=== PATIENT | male | born 1965 | race Caucasian/White ===

== ENCOUNTER → 2023-01-13 14:11 | Outpatient (CLI) | payer OTHER, SELFPAY ==
[2023-01-13 20:38] LABS: Alanine Aminotransferase 37 IU/L (<50); Albumin Globulin Ratio 1.5 (1.0-2.8); Alkaline Phosphatase 68 U/L (38-126); Aspartate Aminotransferase 40 IU/L (17-59); BUN Creatinine Ratio 10.8 (6-22); Bilirubin Total 0.6 mg/dL (0.2-1.3); Blood Urea Nitrogen 13 mg/dL (9-20); Calcium 9.9 mg/dL (8.4-10.2); Carbon Dioxide 26 mmol/L (22-32); Chloride 103 mmol/L (98-107); Estimated Glomerular Filt Rate > 60 mL/min (>60); Globulin 3.3 g/dL (1.7-4.1); Glucose 91 mg/dL (70-100); HEMOLYSIS < 15 (0-50); Potassium 3.8 mmol/L (3.4-5.1); Sodium 140 mmol/L (137-145); Total Protein 8.3 g/dL (6.3-8.2)
[2023-01-13 20:48] LABS: Add Manual Diff / Slide Review NO; Basophils Absolute Auto 0 /uL (0-100); Basophils Percent Auto 0.4 % (0-2); Eosinophils Absolute Auto 100 /uL (0-450); Eosinophils Percent Auto 1.1 % (2-4); Hematocrit 41.9 % (41-53); Hemoglobin 14.1 g/dL (13.5-17.5); Lymphocytes Absolute Auto 2600 /uL (1100-4500); Lymphocytes Percent Auto 33.4 % (25-40); Mean Corpuscular HGB Conc 33.7 % (30-36); Mean Corpuscular Hemoglobin 31.4 PG (26-34); Mean Corpuscular Volume 93.2 fL (80-100); Monocytes Absolute Auto 700 /uL (0-900); Monocytes Percent Auto 9.3 % (3-14); Neutrophils Absolute Auto 4300 /uL (1500-7000); Neutrophils Percent Auto 55.8 % (50-75); Platelet Count 273 X10^3/uL (150-400); White Blood Cell Count 7.8 X10^3/uL (4.5-11.0)
== END ==
PROVIDERS: PCP Physician Assistant Medical; Visit Provider Physician Assistant
DX: R10.9 Unspecified abdominal pain (principal)
CPT/HCPCS: 80053; 85025

== ENCOUNTER 2024-07-26 08:38 | Observation (INO) | payer BC, SELFPAY ==
[2024-07-26] VITALS (22 sets, daily range): BP systolic 104–155; BP diastolic 68–83; PULSE 59–91; RESP 14–21; TEMP 36.1–36.9; O2SAT 94–99; BMI 32.3
--- NOTE | 2024-07-26 | PATH_ITS ---
[facility] Accession Number: [id number] No. of containers..01 Tissue . 01 Material submitted: . gallbladder - GALLBLADDER . 01 Diagnosis: GALLBLADDER, CHOLECYSTECTOMY: Mild chronic calculous cholecystitis with cholesterolosis. Negative for dysplasia and malignancy. MRV 07/28/2024 1253 Local . 01 Electronically signed: . Luis F Mercado MD, Pathologist NPI- [id number] . 01 Gross description: . Received in formalin with two patient identifiers and gallbladder, is a disrupted gallbladder, 7.7 x 3.5 x 2.9 cm, with violaceous, smooth serosa with two full thickness defects, 0.1 and 0.2 cm in greatest dimension. The cystic duct margin is inked blue, and no pericystic lymph node is identified. The lumen contains multiple yellow bosselated calculi measuring up to 0.6 cm in greatest dimension admixed with brown mucoid bile. The mucosa is green to brown and velvety with yellow areas of discoloration and no polyps or lesions identified. The moreno average 0.3 cm thick. Flotation Tank Operator sections to include the cystic duct margin and full thickness sections are submitted in A1. ([id number]) /MRV 07/27/2024 1437 Local . 01 Pathologist provided ICD-10: K80.10 . 01 CPT . 846070 Specimen Comment: A courtesy copy of this report has been sent to [phone] Performed at: [address] [id number] MD Rigoberto Keenan MD Phone: [phone]
--- NOTE | 2024-07-26 08:45 | ED_ITS ---
HPI - General Adult General Chief complaint: Abdominal Pain Stated complaint: upper Stomach pain Time Seen by Provider: 07/26/24 08:44 Source: patient, RN notes reviewed and old records reviewed Mode of arrival: Ambulatory Limitations: no limitations History of Present Illness HPI narrative: 58-year-old male history HIV and a technical since 2000, known gallstones, hiatal hernia, insomnia who presents with complaint of epigastric and right upper quadrant pain that started about 2 days ago. He states 1st episode started after eating a meal got a little bit better and then woke him up in the night. Had another episode yesterday after eating a large meal improved again but then woke him up early this morning. Patient states it is epigastric radiates to the right upper quadrant. He states not really much towards the back. No fevers or chills. No nausea or vomiting. He has had normal bowel movements. No dysuria urgency or frequency. No flank pain. Has not had similar symptoms in the past. Patient states he has a history of diverticulitis in his had a CT scan last December they had noticed that he had a hiatal hernia and gallstones. Patient states he is Lexapro, Seroquel for sleep and Dovato. Patient states he has had a prior umbilical hernia repair as a child. No tobacco, alcohol, no recreational drugs. Renay Farnsworth is his primary care provider. Related Data Home Medications Medication Instructions Recorded Confirmed divalproex 500 mg tablet,extended 1,000 mg PO DAILY Mood 07/03/22 07/26/24 release 24 hr (Depakote ER) dolutegravir 50 mg-lamivudine 300 1 tab PO DAILY HIV 07/03/22 07/26/24 mg tablet (Dovato) doxylamine succinate 25 mg tablet 25 mg PO BEDTIME 07/03/22 07/26/24 escitalopram oxalate 20 mg tablet 20 mg PO DAILY Depression 07/03/22 07/26/24 (Lexapro) Previous Rx's Medication Instructions Recorded amoxicillin 875 mg-potassium 1 tab PO BID #20 tabs 09/28/23 clavulanate 125 mg tablet Allergies Allergy/AdvReac Type Severity Reaction Status Date / Time sulfamethoxazole Allergy Intermediate Tachycardia Verified 07/26/24 13:52 [From Bactrim] trimethoprim [From Bactrim] Allergy Intermediate Tachycardia Verified 07/26/24 13:52 Review of Systems Review of Systems ROS Unobtainable: All systems reviewed & are unremarkable except as noted in HPI and below Patient History Social History household members: spouse Smoking Status: Never smoker alcohol intake: never Smoking Status: Never smoker Exam Narrative Exam Narrative: GENERAL: Alert and oriented x three, well-appearing male in mild distress HEENT: Head normocephalic, atraumatic, EOMI, pupils reactive, face symmetric, moist mucous membranes NECK: Supple, full range of motion CARDIOVASCULAR: Regular rate and rhythm without murmurs, rubs or gallops. RESPIRATORY: Breath sounds equal bilaterally, no wheezes rales or rhonchi. ABDOMEN: Soft, positive for right upper quadrant tenderness. Normoactive bowel sounds all 4 quadrants. No guarding or rebound, rigidity, no mass : No CVA tenderness EXTREMITIES: Normal range of motion, no clubbing or edema. Neurovascularly intact NEUROLOGICAL: Cranial nerves II through XII grossly intact. Moving all extremities SKIN: Warm, dry, no petechiae, no rashes or lesions. Initial Vital Signs Initial Vital Signs: Vital Signs Pulse Rate 79 07/26/24 08:47 Blood Pressure 155/81 H 07/26/24 08:47 Pulse Oximetry 98 07/26/24 08:47 Course Orders Ordered: Acetaminophen (Acetaminophen 325 Mg Tablet) 650 mg PO Q6H PRN PRN Reason: Fever/Mild Pain (1-3) Hydrocodone Bitart/Acetaminophen (Hydrocodone/Acet 5/325 Tablet) 1 tab PO Q4H PRN PRN Reason: Pain, Moderate (4-6) Last Admin: 07/26/24 17:49 Dose: 1 tab Documented By: MATT Hydrocodone Bitart/Acetaminophen (Hydrocodone/Acet 5/325 Tablet) 2 tab PO Q4H PRN PRN Reason: Pain, Severe (7-10) Diphenhydramine HCl (Diphenhydramine 25 Mg Tablet) 25 mg PO BEDTIME DAYDAY Divalproex Sodium (Divalproex Er 250 Mg Tab) 1,000 mg PO DAILY DAYDAY Escitalopram Oxalate (Escitalopram 10 Mg Tablet) 20 mg PO DAILY DAYDAY Hydromorphone HCl (Hydromorphone 0.5 Mg Inj) 0.5 mg IV Q2H PRN PRN Reason: Pain, Severe (7-10) Ibuprofen (Ibuprofen 600 Mg Tablet) 600 mg PO Q6H PRN PRN Reason: Fever/Mild Pain (1-3) Naloxone HCl (Naloxone 0.4 Mg/Ml Vial) 0.2 mg IV Q2MIN PRN PRN Reason: Opiate Reversal Nf - Dolutegravir- Lamivudine (Dovato) 50-300 Mg Tablet 1 tab PO DAILY DAYDAY Ondansetron HCl (Ondansetron 4 Mg/2 Ml Inj) 4 mg IV Q8HR PRN PRN Reason: Nausea And Vomiting Discontinued Medications Benzocaine (Benzocaine/Menthol 1 Karen Pkt) 1 each PO PRN PRN PRN Reason: Sore Throat Bupivacaine HCl/Epinephrine Bitart (Bupivacaine 0.5% W/ Epi (Pf) 30 Ml Vial) 30 ml INJ NOW ONE Stop: 07/26/24 15:22 Last Admin: 07/26/24 15:22 Dose: 30 ml Documented By: Fentanyl (Fentanyl 100 Mcg/2 Ml Inj) 0 mcg IV Q5MIN PRN PRN Reason: Pain, Severe (7-10) Hydromorphone HCl (Hydromorphone 1 Mg Inj) 0 mg IV Q5MIN PRN PRN Reason: Pain, Mild (1-3) Hydroxyzine HCl (Hydroxyzine 50 Mg/Ml Inj) 25 mg IM NOW PRN PRN Reason: Pain, Mild (1-3) Hydroxyzine HCl (Hydroxyzine Hcl 25 Mg Tablet) 25 mg PO NOW PRN PRN Reason: Pain, Mild (1-3) Piperacillin Sod/Tazobactam (Sod 4.5 gm/ Sodium Chloride) 100 mls @ 200 mls/hr IV NOW ONE Stop: 07/26/24 09:59 Last Infusion: 07/26/24 11:39 Dose: Infused Documented By: Admin: 07/26/24 10:54 Dose: 200 mls/hr Documented By: KEREN Acetaminophen (Ofirmev) 1,000 mg in 100 mls @ 400 mls/hr IV NOW ONE Stop: 07/26/24 12:57 Last Infusion: 07/26/24 13:12 Dose: Infused Documented By: Admin: 07/26/24 12:49 Dose: 400 mls/hr Documented By: HARRIETT Lactated Ringer's (Lactated Ringers) 1,000 mls @ 42 mls/hr IV CONT DAYDAY Last Admin: 07/26/24 14:03 Dose: 42 mls/hr Documented By: MEGAN Ketorolac Tromethamine (Ketorolac 30 Mg/Ml Vial) 15 mg IV NOW ONE Stop: 07/26/24 08:56 Last Admin: 07/26/24 09:07 Dose: 15 mg Documented By: KEREN Metoclopramide HCl (Metoclopramide 10 Mg/2 Ml Inj) 10 mg IV NOW PRN PRN Reason: Nausea And Vomiting Ondansetron HCl (Ondansetron 4 Mg/2 Ml Inj) 4 mg IV NOW PRN PRN Reason: Nausea And Vomiting Ondansetron HCl (Ondansetron 4 Mg Odt) 4 mg PO NOW PRN PRN Reason: Nausea And Vomiting Ondansetron HCl (Ondansetron 4 Mg/2 Ml Inj) 4 mg IV NOW PRN PRN Reason: Nausea And Vomiting Oxycodone HCl (Oxycodone Ir 5 Mg Tablet) 5 mg PO PACUNOW PRN PRN Reason: Mild or moderate pain Vital Signs Vital signs: Vital Signs - 8 hr 07/26/24 11:30 07/26/24 12:00 Pulse Rate 65 60 Pulse Oximetry 98 95 Medical Decision Making Lab Data 07/26/24 09:00 07/26/24 09:00 Labs: Lab Results 07/26/24 07/26/24 Range/Units 09:00 09:30 WBC 10.8 (4.5-11.0) X10^3/uL RBC 4.66 (4.5-5.9) X10^6/uL Hgb 14.7 (13.5-17.5) g/dL Hct 43.2 (41-53) % MCV 92.6 (80-100) fL MCH 31.5 (26-34) PG MCHC 34.0 (30-36) % RDW 13.7 (11.6-14.8) % Plt Count 239 (150-400) X10^3/uL Neut % (Auto) 73.6 (50-75) % Lymph % (Auto) 17.9 L (25-40) % [place] % (Auto) 7.6 (3-14) % Eos % (Auto) 0.4 L (2-4) % Baso % (Auto) 0.5 (0-2) % Neut # (Auto) 7900 H (6312-1686) /uL Lymph # (Auto) 1900 (7934-1547) /uL [place] # (Auto) 800 (0-900) /uL Eos # (Auto) 0 (0-450) /uL Baso # (Auto) 100 (0-100) /uL Sodium 136 L (137-145) mmol/L Potassium 3.6 (3.4-5.1) mmol/L Chloride 105 (98-107) mmol/L Carbon Dioxide 24 (22-32) mmol/L BUN 16 (9-20) mg/dL Creatinine 1.02 (0.66-1.25) mg/dL Estimated GFR > 60 (>60) mL/min BUN/Creatinine Ratio 15.7 (6-22) Glucose 139 H (70-100) mg/dL Calcium 9.8 (8.4-10.2) mg/dL Total Bilirubin 0.6 (0.2-1.3) mg/dL AST 44 (17-59) IU/L ALT 43 (<50) IU/L Alkaline Phosphatase 57 (38-126) U/L Total Protein 8.0 (6.3-8.2) g/dL Albumin 4.8 (3.5-5.0) g/dL Globulin 3.2 (1.7-4.1) g/dL Albumin/Globulin Ratio 1.5 (1.0-2.8) Lipase 97 (23-300) U/L Urine RBC None seen (0-5/HPF) Urine WBC None seen (0-5/HPF) Ur Squamous Epith Cells None seen (0-5/HPF) Urine Bacteria None seen (None) Ur Culture Indicated? Cult not indicated Vol Urine Centrifuged 10ml (spun) Urine Dip Bedside Urine Glucose 100 mg/dl Bedside Urine Bilirubin - Negative Bedside Urine Ketone - Negative Urine Specific [place] 1.005 Bedside Urine Occult Blood +/- Bedside Urine pH 6.0 Bedside Urine Protein - Negative Bedside Urine Urobilinogen - Negative Bedside Urine Nitrite - Negative Bedside Urine Leukocytes - Negative Esterase Point of care testing: Urine Dip Bedside Urine Glucose 100 mg/dl Bedside Urine Bilirubin - Negative Bedside Urine Ketone - Negative Urine Specific [place] 1.005 Bedside Urine Occult Blood +/- Bedside Urine pH 6.0 Bedside Urine Protein - Negative Bedside Urine Urobilinogen - Negative Bedside Urine Nitrite - Negative Bedside Urine Leukocytes - Negative Esterase Imaging Data US - abdomen: Radiologist's Impression: Ray Christianson??He/Him/His??58??M??1965 ? Allergy/Adv: sulfamethoxazole, trimethoprim (More??) Close Abdomen Ultrasound (Signed) RicciAlverto - 07/26/24 DI Result 10/16/23 Launch?[address] [address] Ultrasound Report Signed Patient: Ray Christianson MR#: [id number] : 1965 Acct:[id number] Age/Sex: 58 / M Date of Service: 07/26/24 Loc: ED Accession Number: [id number] Procedure: US abdomen limited Ordering Provider: Cary David D.O. PROCEDURE: US ABDOMEN LIMITED INDICATIONS: RUQ PAIN; KNOWN GALLSTONES TECHNIQUE: Real-time scanning was performed of the abdominal and retroperitoneal organs, with image documentation. COMPARISON: None. FINDINGS: Liver: Liver is normal in size and homogeneous in echotexture. Gallbladder: Multiple non mobile shadowing gallstones are present measuring up to 1.9 cm. Gallbladder wall measures up to 6.6 mm in thickness. There is trace pericholecystic fluid. Sonographic Fernandez sign is positive. Biliary ducts: Intrahepatic bile ducts are non-dilated. Extrahepatic bile duct caliber measures 4 mm. Normal is 6-7 mm or less in diameter, or 10 mm or less post-cholecystectomy. Pancreas: Visualized portions of the pancreas are sonographically normal. Miscellaneous: No free abdominal fluid. IMPRESSION: Findings suspicious for acute cholecystitis including gallstones, gallbladder wall thickening, pericholecystic fluid, and positive sonographic Fernandez sign. Approved by: Alverto Wynne M.D. on 07/26/2024 at 9:39 ECG Data Attestation: I personally reviewed and interpreted this ECG as follows: Interpretation: Sinus rhythm rate of 72 CO 136 QRS 80 QTC of 409, no acute ST elevation depression noted. Little bit of motion artifact appreciated. MDM Narrative Medical decision making narrative: 58-year-old male who has epigastric right upper quadrant pain for the past 2 days worsened with meals. Patient states fevers no nausea or vomiting no other GI symptoms. Patient is tender in the right upper quadrant on exam. Reports known gallstones on prior CT that has been obtained for prior episodes of diverticulitis. Patient is slightly hypertensive otherwise normal vitals Labs labs show white count of 10.8 hemoglobin of 14 platelets of 239, sodium of 136 potassium 3.6 chloride of 105 CO2 of 24 BUN 16 creatinine of 1.02 glucose of 139 LFTs are negative lipase is normal at 97. EKG shows sinus rhythm. Urine positive for blood, negative for nitrates or leukocyte esterase Right upper quadrant ultrasound shows multiple, but stones present measuring up to 1.9 cm, gallbladder moreno up to 6.6 mm thickness trace pericholecystic fluid sonographic Fernandez's signs positive biliary ducts are nondilated. No free abdominal fluid. [address] Pozo general surgery: Reviewed patient's history and findings today. Likely OR this afternoon asked patient to continue to be NPO. He will see patient. Discharge Plan Departure Patient Disposition: Admitted to Surgery Clinical Impression: Cholecystitis, acute with cholelithiasis Qualifiers: Biliary obstruction: without biliary obstruction Qualified Code(s): K80.00 - Calculus of gallbladder with acute cholecystitis without obstruction Admit Date/Time: 07/26/24 12:19 Admit Provider: Curry Pozo
--- NOTE | 2024-07-26 08:56 | EKG_ITS ---
[id number] [address] Test Date: 2024-07-26 Pat Name: Ray Christianson Department: Room: Gender: Male Director Medical: KEREN : 1965 Requested By: Order Number: [id number] Reading MD: Agus Coffman MD Measurements Intervals [place] Rate: 79 P: 38 DE: 134 QRS: -1 QRSD: 80 T: 1 QT: 374 QTc: 428 Interpretive Statements Normal sinus rhythm Low voltage QRS Nonspecific ST and T wave abnormality Electronically Signed On 07-26-2024 10:37:26 PST by Agus Coffman MD
--- NOTE | 2024-07-26 08:56 | DI.US.S_ITS ---
PROCEDURE: US ABDOMEN LIMITED INDICATIONS: RUQ PAIN; KNOWN GALLSTONES TECHNIQUE: Real-time scanning was performed of the abdominal and retroperitoneal organs, with image documentation. COMPARISON: None. FINDINGS: Liver: Liver is normal in size and homogeneous in echotexture. Gallbladder: Multiple non mobile shadowing gallstones are present measuring up to 1.9 cm. Gallbladder wall measures up to 6.6 mm in thickness. There is trace pericholecystic fluid. Sonographic Fernandez sign is positive. Biliary ducts: Intrahepatic bile ducts are non-dilated. Extrahepatic bile duct caliber measures 4 mm. Normal is 6-7 mm or less in diameter, or 10 mm or less post-cholecystectomy. Pancreas: Visualized portions of the pancreas are sonographically normal. Miscellaneous: No free abdominal fluid. IMPRESSION: Findings suspicious for acute cholecystitis including gallstones, gallbladder wall thickening, pericholecystic fluid, and positive sonographic Fernandez sign. Approved by: Alverto Wynne M.D. on 07/26/2024 at 9:39
--- NOTE | 2024-07-26 08:56 | EKG_ITS ---
[id number] [address] Test Date: 2024-07-26 Pat Name: Ray Christianson Department: Room: Gender: Male Bellows Filler: KEREN : 1965 Requested By: Order Number: [id number] Reading MD: Agus Coffman MD Measurements Intervals [place] Rate: 72 P: 69 AK: 136 QRS: -8 QRSD: 80 T: -4 QT: 374 QTc: 409 Interpretive Statements Normal sinus rhythm Low voltage QRS Nonspecific ST and T wave abnormality Electronically Signed On 07-26-2024 10:37:29 PST by Agus Coffman MD
[2024-07-26] MEDS: KETOROLAC 30 MG/ML VIAL 15 MG IV (09:07)
[2024-07-26 09:08] LABS: Add Manual Diff / Slide Review NO; Basophils Absolute Auto 100 /uL (0-100); Basophils Percent Auto 0.5 % (0-2); Eosinophils Absolute Auto 0 /uL (0-450); Eosinophils Percent Auto 0.4 % (2-4); Hematocrit 43.2 % (41-53); Hemoglobin 14.7 g/dL (13.5-17.5); Lymphocytes Absolute Auto 1900 /uL (1100-4500); Lymphocytes Percent Auto 17.9 % (25-40); Mean Corpuscular Hemoglobin 31.5 PG (26-34); Mean Corpuscular Volume 92.6 fL (80-100); Monocytes Absolute Auto 800 /uL (0-900); Monocytes Percent Auto 7.6 % (3-14); Neutrophils Absolute Auto 7900 /uL (1500-7000); Neutrophils Percent Auto 73.6 % (50-75); Platelet Count 239 X10^3/uL (150-400); Red Blood Cell Count 4.66 X10^6/uL (4.5-5.9); Red Cell Distribution Width 13.7 % (11.6-14.8); White Blood Cell Count 10.8 X10^3/uL (4.5-11.0)
[2024-07-26 09:23] LABS: Alanine Aminotransferase 43 IU/L (<50); Albumin 4.8 g/dL (3.5-5.0); Albumin Globulin Ratio 1.5 (1.0-2.8); Alkaline Phosphatase 57 U/L (38-126); Aspartate Aminotransferase 44 IU/L (17-59); BUN Creatinine Ratio 15.7 (6-22); Bilirubin Total 0.6 mg/dL (0.2-1.3); Blood Urea Nitrogen 16 mg/dL (9-20); Calcium 9.8 mg/dL (8.4-10.2); Carbon Dioxide 24 mmol/L (22-32); Chloride 105 mmol/L (98-107); Estimated Glomerular Filt Rate > 60 mL/min (>60); Globulin 3.2 g/dL (1.7-4.1); Glucose 139 mg/dL (70-100); HEMOLYSIS < 15 (0-50); Lipase 97 U/L (23-300); Potassium 3.6 mmol/L (3.4-5.1); Sodium 136 mmol/L (137-145)
[2024-07-26 10:06] LABS: Bacteria Urine None Seen; Culture Indicated Urine Cult Not Indicated; RBC Urine None Seen (0-5/HPF); Squamous Epithelial Cell Urine None Seen (0-5/HPF); Urine Volume 10mL (spun); WBC Urine None Seen (0-5/HPF)
[2024-07-26] MEDS: PIPERACILLIN/TAZO 4.5 GM in SODIUM CHLORIDE 0.9% 100 ML IV (10:54)
--- NOTE | 2024-07-26 10:56 | PC.NURSE ---
paged @[phone] to consult with , left a message with OR staff to have call back at 1030 after case. was successfully called again at 1055 and transferred to speak with .
[2024-07-26] MEDS: ACETAMINOPHEN IV 1,000 MG/100 ML VIAL 400 MG IV (12:49)
--- NOTE | 2024-07-26 13:06 | P.HP_ITS ---
History of Present Illness History of Present Illness Date Patient Seen: 07/26/24 Time Patient Seen: 13:06 Chief complaint: upper abdominal pain Narrative: Ray Christianson is a 58-year-old man who presented with severe epigastric and right upper quadrant pain for about 24 hours. He had had prior pain over the weekend and in the past but it became much more severe after eating dinner last night. He presented to the emergency department today and an ultrasound showed gallstones. His blood work has been normal. He had a bottle of Frapachino and a bar from the grocery store at 6:00 a.m. today. His only prior abdominal surgery was an umbilical hernia repair when he was a child. [facility] Social History Smoking Status: Never smoker Meds Home Medications and Allergies Home Medications Medication Instructions Recorded Confirmed Type divalproex 500 mg tablet,extended 1,000 mg PO DAILY Mood 07/03/22 09/28/23 History release 24 hr (Depakote ER) dolutegravir 50 mg-lamivudine 300 1 tab PO DAILY HIV 07/03/22 09/28/23 History mg tablet (Dovato) doxylamine succinate 25 mg tablet 25 mg PO BEDTIME PRN 07/03/22 09/28/23 History escitalopram oxalate 20 mg tablet 20 mg PO DAILY Depression 07/03/22 09/28/23 History (Lexapro) amoxicillin 875 mg-potassium 1 tab PO BID #20 tabs 09/28/23 09/28/23 Rx clavulanate 125 mg tablet Allergies Allergy/AdvReac Type Severity Reaction Status Date / Time sulfamethoxazole Allergy Intermediate Tachycardia Verified 09/28/23 15:11 [From Bactrim] trimethoprim [From Bactrim] Allergy Intermediate Tachycardia Verified 09/28/23 15:11 Exam Vital Signs (past 8 hours): - 07/26/24 08:47 07/26/24 08:47 07/26/24 08:56 Temperature 98.5 F Pulse Rate 79 77 Respiratory Rate 18 Blood Pressure 155/81 H 155/81 H Pulse Oximetry 98 99 Oxygen Delivery Method Room Air 07/26/24 09:00 07/26/24 09:00 07/26/24 09:30 Temperature Pulse Rate 71 Respiratory Rate Blood Pressure 142/75 H 128/70 Pulse Oximetry 99 Oxygen Delivery Method 12/03/24 09:30 07/26/24 10:00 07/26/24 10:00 Temperature Pulse Rate 66 65 Respiratory Rate Blood Pressure 120/77 Pulse Oximetry 95 96 Oxygen Delivery Method 07/26/24 10:30 07/26/24 10:30 07/26/24 11:00 Temperature Pulse Rate 59 L 69 Respiratory Rate Blood Pressure 123/72 Pulse Oximetry 97 99 Oxygen Delivery Method Room Air 07/26/24 11:30 07/26/24 12:00 Temperature Pulse Rate 65 60 Respiratory Rate Blood Pressure Pulse Oximetry 98 95 Oxygen Delivery Method Oxygen Delivery Method Room Air Narrative Exam Narrative: Abdomen is soft, tender to palpation in the right upper quadrant without jhon peritonitis Objective Labs 07/26/24 09:00 07/26/24 09:00 Labs: Laboratory Results - last 24 hr 07/26/24 07/26/24 09:00 09:30 WBC 10.8 RBC 4.66 Hgb 14.7 Hct 43.2 MCV 92.6 MCH 31.5 MCHC 34.0 RDW 13.7 Plt Count 239 Neut % (Auto) 73.6 Lymph % (Auto) 17.9 L [place] % (Auto) 7.6 Eos % (Auto) 0.4 L Baso % (Auto) 0.5 Neut # (Auto) 7900 H Lymph # (Auto) 1900 [place] # (Auto) 800 Eos # (Auto) 0 Baso # (Auto) 100 Sodium 136 L Potassium 3.6 Chloride 105 Carbon Dioxide 24 BUN 16 Creatinine 1.02 Estimated GFR > 60 BUN/Creatinine Ratio 15.7 Glucose 139 H Calcium 9.8 Total Bilirubin 0.6 AST 44 ALT 43 Alkaline Phosphatase 57 Total Protein 8.0 Albumin 4.8 Globulin 3.2 Albumin/Globulin Ratio 1.5 Lipase 97 Urine RBC None seen Urine WBC None seen Ur Squamous Epith Cells None seen Urine Bacteria None seen Ur Culture Indicated? Cult not indicated Vol Urine Centrifuged 10ml (spun) Assessment & Plan Assessment and plan (1) Cholecystitis, acute with cholelithiasis: Qualifiers: Biliary obstruction: without biliary obstruction Qualified Code(s): K 80.00 - Calculus of gallbladder with acute cholecystitis without obstruction Status: Acute Plan Ray is a 58-year-old man with biliary colic versus acute cholecystitis. He has received Zosyn in the ER. I recommend we proceed with a laparoscopic cholecystectomy. Time-Based Coding :: [TOTAL MINUTES] spent with patient and on the chart (including review of chart, obtaining history, exam, reviewing outside data, placing orders, documenting exam and treatment plan, and counseling patient) on [DATE].
--- NOTE | 2024-07-26 13:25 | SUR.OPER ---
Supine on padded OR bed, head on pillow, arms secured on padded arm boards at <90 degrees abduction, legs uncrossed, safety belt at thigh, tape over blanket over lower legs.
[2024-07-26] MEDS: LACTATED RINGERS 1,000 ML 42 ML IV (14:03)
[2024-07-26] MEDS: BUPIVACAINE 0.5% W/ EPI (PF) 30 ML VIAL INJ (15:22)
--- NOTE | 2024-07-26 16:13 | P.OP_ITS ---
Operative Date/Time/Diagnoses Date of procedure: 07/26/24 Time of procedure: 16:13 Pre-op diagnosis: Acute cholecystitis Post-op diagnosis: same Procedure & Clinicians Procedure: Laparoscopic cholecystectomy Same procedure as scheduled: Yes Surgeon: Nicolle Pozo Social Secretary: Valdo Ventura Anesthesia Type: General Operative Notes Procedure in detail: The patient was given preoperative antibiotics. The patient was brought to the operating room and placed on the table in the supine position. General endotracheal anesthesia was induced. The abdomen was prepped and draped. A time-out was performed. We made a 1 cm infraumbilical incision. We dissected down to the base of the umbilical stalk using cautery. We grasped the umbilical stalk with a Dillon clamp to elevate the abdominal wall. We scored the fascia in the midline with cautery. There was minimal posterior sheath and we could see directly into the peritoneal cavity and we were looking at some serosa. The Cate port was placed and the abdomen was insufflated to 15 mmHg. A 5 mm 30 degree laparoscopic was inserted. We could see a very short superficial burn nicolle on a loop of sigmoid colon. Next, we placed 5 mm ports in the subxiphoid position and right upper quadrant at the midclavicular line and anterior axillary line. The patient was then positioned in reverse Trendelenburg and the table was tilted to the left. The gallbladder was grasped at the dome and retracted cephalad. There were extensive adhesions involving omentum over the gallbladder and the edge of the liver as well as the left lobe of the liver to the anterior abdominal wall. We carefully dissected the adhesions to free up the gallbladder. We bluntly took down the adhesions of omentum to the source of the gallbladder. Eventually we were able to in the gallbladder mobilize enough to retract it in the usual orientation. We did tear two holes in the wall of the gallbladder and spilled bile and small stones into the gallbladder fossa. We then dissected the cystic structures with a combination of hook cautery and blunt dissection. We obtained a critical view. We placed clips on the cystic duct and artery and divided the cystic duct and artery sharply between the clips. The gallbladder was then dissected off the liver and placed in a specimen retrieval bag. We did see a very small duct of Luschka coming from the distal, lateral portion of the liver bed draining a small amount of bile. A single clip was applied with resolution of the bile. We irrigated the right upper quadrant and all the aspirate returned clear. We then returned to look at the sigmoid colon. An additional 5 mm port was placed in the right lower quadrant to allow placement of a single 3-0 silk Lembert stitch to close the serosal burn nicolle. We then removed all the 5 mm ports under direct vision we removed the Cate port. We then injected some local into the fascia and closed the fascia with 2 interrupted 0 Vicryl sutures. The skin incisions were closed with 4-0 Monocryl and Steri-Strips were applied. Band-Aids were applied over the Steri-Strips. EBL: 50 mL Specimen: Gallbladder and contents Post-operative Condition: stable Disposition: PACU
[2024-07-26] MEDS: HYDROCODONE/ACET 5/325 TABLET 1 TAB PO (17:49)
[2024-07-26] MEDS: HYDROCODONE/ACET 5/325 TABLET 2 TAB PO (21:11)
[2024-07-26] MEDS: QUETIAPINE 25 MG TABLET PO (21:43)
--- NOTE | 2024-07-26 22:17 | PC.NURSE ---
NOC: Called bond writer MD Pozo @ 2044 to clarify home meds schedule; Lexapro and Dovato to start in AM per OCT, placed telephone order for 25mg Seroquel PO starting 07/26 2100. Relayed information to patient. Care continues.
[2024-07-27] MEDS: HYDROCODONE/ACET 5/325 TABLET 2 TAB PO ×3 (00:52→13:28)
[2024-07-27 04:00] VITALS: BP 112/61; PULSE 92; RESP 17; TEMP 36.4; O2SAT 93
--- NOTE | 2024-07-27 05:38 | PC.NURSE ---
NOC: Per pt request, pt ambulated with SBA/FWW for an entire lap of ACU. Pt tolerated well, reported feeling less stiff and sore in his hip afterwards. Pt transferred back to bed, resting comfortably, care continues.
--- NOTE | 2024-07-27 07:35 | PC.NURSE ---
Message placed for Dr Esteban at 0735 to verify diet for breakfast, advance from clears?
[2024-07-27 08:00] VITALS: BP 115/59; PULSE 80; RESP 16; TEMP 36.2; O2SAT 95
--- NOTE | 2024-07-27 08:38 | PM.PN.1 ---
Subjective Subjective Date Patient Seen: 07/27/24 Time Patient Seen: 08:38 Interval history: Doing well on postop day 1 following laparoscopic cholecystectomy for acute cholecystitis Exam Vital Signs (past 8 hours): - 07/27/24 04:00 Temperature 97.5 F L Pulse Rate 92 H Respiratory Rate 17 Blood Pressure 112/61 Pulse Oximetry 93 Oxygen Flow Rate 0 Oxygen Delivery Method Room Air Oxygen Flow Rate 0 Const General: No acute distress Resp Effort & Inspection: normal respiratory effort Objective Labs 07/26/24 09:00 07/26/24 09:00 Labs: Laboratory Results - last 24 hr 07/26/24 07/26/24 09:00 09:30 WBC 10.8 RBC 4.66 Hgb 14.7 Hct 43.2 MCV 92.6 MCH 31.5 MCHC 34.0 RDW 13.7 Plt Count 239 Neut % (Auto) 73.6 Lymph % (Auto) 17.9 L [place] % (Auto) 7.6 Eos % (Auto) 0.4 L Baso % (Auto) 0.5 Neut # (Auto) 7900 H Lymph # (Auto) 1900 [place] # (Auto) 800 Eos # (Auto) 0 Baso # (Auto) 100 Sodium 136 L Potassium 3.6 Chloride 105 Carbon Dioxide 24 BUN 16 Creatinine 1.02 Estimated GFR > 60 BUN/Creatinine Ratio 15.7 Glucose 139 H Calcium 9.8 Total Bilirubin 0.6 AST 44 ALT 43 Alkaline Phosphatase 57 Total Protein 8.0 Albumin 4.8 Globulin 3.2 Albumin/Globulin Ratio 1.5 Lipase 97 Urine RBC None seen Urine WBC None seen Ur Squamous Epith Cells None seen Urine Bacteria None seen Ur Culture Indicated? Cult not indicated Vol Urine Centrifuged 10ml (spun) [facility] Social History household members: spouse Smoking Status: Never smoker alcohol intake: never Assessment & Plan Assessment and plan (1) Cholecystitis, acute with cholelithiasis: Qualifiers: Biliary obstruction: without biliary obstruction Qualified Code(s): K80.00 - Calculus of gallbladder with acute cholecystitis without obstruction Status: Acute Plan We will advance diet with expected discharge later today. I disclosed that there was a very small, minor appearing cautery injury to the serosa of his sigmoid colon from the entry. I told Ray that I placed a stitch to reinforce the area but there is a small risk that could develop colon perforation in the next 4-5 days. I explained that he should return to the hospital if he develops sudden increase in abdominal pain. Time-Based Coding :: [TOTAL MINUTES] spent with patient and on the chart (including review of chart, obtaining history, exam, reviewing outside data, placing orders, documenting exam and treatment plan, and counseling patient) on [DATE]. Quality VTE Deep Vein Thrombosis/Pulmonary Embolism Present on Admission: No
[2024-07-27] MEDS: ESCITALOPRAM 10 MG TABLET 20 MG PO (09:05)
[2024-07-27] MEDS: DOLUTEGRAVIR LAMIVUDINE 1 EACH PO (09:09)
--- NOTE | 2024-07-27 13:39 | PC.NURSE ---
pt discharged with all belongings, RN provided discharge education and packet, questions answered pt agreeable, wheeled down to leave with partner to catch [employer] to [place].
--- NOTE | 2024-07-27 13:45 | PC.NURSE ---
patient given 2 tabs jose raul approx. 13:30 just prior to d/c home
--- NOTE | 2024-07-27 13:56 | CM.DANOTE ---
B DCP Assessment note pt is a 58yo M here POD1 emergent lap surinder with Dr. Pozo. PCP Renay Zaidi Payer [employer] and self pay. [employer] reviewed EMR. pt lives in [facility] with partner Chato. Per surgeon, cleared to dc home today pending tolerating diet. Per RN, pt tolerating general diet. no obvious/anticipated CM/DCP needs. Per RN notes, OOB with walker overnight. Received vm from [facility] (p [phone]) re:any dcp needs. [employer] lvm with [employer] to update her that pt will be discharging home today. Pt left prior to being seen by this [employer]. P: return home with partner support today. no identified barriers to safe dc home and OP f/u at this time. CM team will continue to follow as needed KULWANT Baca Discharge Planning/Care Management CM Discharge Assessment Start: 07/27/24 13:54 Freq: Status: Discharge Protocol: Document 07/27/24 13:54 (Rec: 07/27/24 13:56 [id number]) Discharge Planning Assessment Assigned Change Management Lead KULWANT Wynn DPOA/Assigned Designee Name crissy Allen Contact Information [phone] Advance Directives? No History Provided By Patient Prior Living Arrangements House Household Members spouse Type of transporation used prior to Drives own vehicle admit Independent with ADL's Yes Is patient alert and oriented? Yes Barriers to Discharge No Discharge Plan Home Transportation Arrangement family in POV Referrals Initiated None needed Whiteboard Updated in Patient Room with No name and ext. # of Change Management Lead Review Status In Process Please Provide Date Initial DC 07/27/24 Assessment Was Performed Next Review Type Continued Stay Review
== END 2024-07-27 13:43 | disposition home or self-care (01) | DRG 418 ==
LOC: ED 11:02 → AC 12:26
PROVIDERS: Admitting Provider Surgery; Emergency Provider Emergency Medicine; PCP Nurse Practitioner Family; Referring Provider Emergency Medicine; Visit Provider Surgery
PROC: 0FT44ZZ Resection of Gallbladder, Percutaneous Endoscopic Approach (ICD-10-PCS; CPT 47562; principal; 2024-07-26 14:00)
DX: K80.10 Calculus of gallbladder with chronic cholecystitis without obstruction (principal); B20 Human immunodeficiency virus [HIV] disease; K91.71 Accidental puncture and laceration of a digestive system organ or structure during a digestive system procedure; K66.0 Peritoneal adhesions (postprocedural) (postinfection)
CPT/HCPCS: 47562; 76705; 80053; 81003; 81015; 83690; 85025; 93005; 93010; 96365; 96375; 99222; 99283; 99285; G0378; J0134; J1100; J1885; J2405; J2543; J2704; J3010